=== PATIENT | female | born 1950 | race Caucasian/White ===

== ENCOUNTER 2022-11-12 23:34 | Emergency (ER) | payer OTHER ==
[~2022-11-12] VITALS: Ht 162.6 cm; Wt 63.4 kg
[2022-11-13 01:06] LABS: Basophils # (auto) 0 10 ^3/uL (0-0.2); Basophils % (auto) 0.2 % (0.0-2.0); Eosinophils # (auto) 0.1 10 ^3/uL (0-0.8); Eosinophils % (auto) 0.3 % (0.0-7.0); Hematocrit 45.2 % (36.0-46.0); Hemoglobin 15.1 g/dL (12.2-16.2); Lymphocytes % (auto) 5.6 % (10.0-50.0); Mean Corpuscular Hemoglobin 28.8 pg (28.0-32.0); Mean Corpuscular Hgb Conc. 33.4 g/dL (32.0-36.0); Mean Corpuscular Volume 86.1 fL (80.0-100.0); Monocytes % (auto) 5.6 % (0.0-12.0); Neutrophils # (auto) 16.6 10 ^3/uL (1.6-8.6); Neutrophils % (auto) 88.3 % (37.0-80.0); Nucleated Red Blood Cells % 0.1 %; Red Blood Cells 5.24 10^6/uL (4.0-5.20); Red Cell Distribution Width 14.3 % (11.8-14.3); White Blood Cell 18.8 10^3/uL (4.4-10.8)
[2022-11-13] MEDS ORDERED: MAALOX PLUS or MAALOX 30 ML PO ONE (01:15)
[2022-11-13 01:23] LABS: Albumin 3.8 g/dL (3.4-5.0); BUN/Creatinine Ratio 16.2 (10.0-20.0); Calcium 9.7 mg/dL (8.5-10.1); Potassium 3.8 mmol/L (3.5-5.1)
[2022-11-13 01:26] LABS: Bilirubin, Total 1.1 mg/dL (0.2-1.0)
[2022-11-13 05:01] VITALS: BP 188/83
[2022-11-13] MEDS ORDERED: LIDOCAINE VISCOUS 2% 15ML UD PO ONE (05:30)
== END 2022-11-13 06:09 | disposition left against medical advice (07) ==
LOC: ER 23:34
DX: K85.90 Acute pancreatitis without necrosis or infection, unspecified (principal)
CPT/HCPCS: 36415; 74018; 80053; 83690; 85025; 93005

== ENCOUNTER 2023-09-28 20:33 | Emergency (ER) | payer OTHER ==
[~2023-09-28] VITALS: Ht 162.6 cm; Wt 63.0 kg
[2023-09-28 21:50] LABS: Basophils # (auto) 0.1 10 ^3/uL (0-0.2); Basophils % (auto) 0.4 % (0.0-2.0); Eosinophils # (auto) 0.2 10 ^3/uL (0-0.8); Eosinophils % (auto) 1.6 % (0.0-7.0); Hematocrit 42.9 % (36.0-46.0); Lymphocytes # (auto) 1.9 10 ^3/uL (0.4-5.4); Lymphocytes % (auto) 15.9 % (10.0-50.0); Mean Corpuscular Hemoglobin 27.4 pg (28.0-32.0); Mean Corpuscular Hgb Conc. 32.7 g/dL (32.0-36.0); Mean Corpuscular Volume 83.9 fL (80.0-100.0); Monocytes # (auto) 0.6 10 ^3/uL (0-1.3); Monocytes % (auto) 4.8 % (0.0-12.0); Neutrophils # (auto) 9.1 10 ^3/uL (1.6-8.6); Neutrophils % (auto) 77.3 % (37.0-80.0); Nucleated Red Blood Cells % 0.1 %; Red Blood Cells 5.12 10^6/uL (4.0-5.20); Red Cell Distribution Width 15.1 % (11.8-14.3); White Blood Cell 11.7 10^3/uL (4.4-10.8)
[2023-09-28 22:00] LABS: Chloride 109 mmol/L (98-107); Potassium 4.2 mmol/L (3.5-5.1); Sodium 140 mmol/L (136-145)
[2023-09-28 22:01] LABS: Anion Gap 4 (5-15); Calcium 9.8 mg/dL (8.5-10.1); Carbon Dioxide 27 mmol/L (20-30)
[2023-09-28 22:06] LABS: BUN/Creatinine Ratio 13.1 (10.0-20.0); Blood Urea Nitrogen 14 mg/dL (9-23); Glucose 108 mg/dL (74-106)
[2023-09-28 22:09] LABS: INR 1.02 (0.9-1.15); Prothrombin Time 10.7 sec (9.3-11.8)
[2023-09-28] MEDS ORDERED: HEPARIN DRIP/D5W 100UNITS/ML 250 ML IV SCH (22:15)
[2023-09-28] MEDS: IOHEXOL 350 MG/ML 100ML IJ ONE (22:55)
[2023-09-28 23:08] VITALS: PULSE 62; RESP 13; O2SAT 95
[2023-09-29] MEDS: HEPARIN SODIUM (PORCINE) 5000 UNITS/ML 1ML VIAL IV ONE (00:24)
[2023-09-29] MEDS: HEPARIN DRIP/D5W 100UNITS/ML 250 ML IV SCH (00:26)
[2023-09-29 02:30] VITALS: BP 184/65; PULSE 58; RESP 20; TEMP 98.1; O2SAT 92
== END 2023-09-29 02:47 | disposition short-term general hospital (02) ==
LOC: ER 20:33 → EDBD 20:33 → ER 09-29 02:47
DX: G54.0 Brachial plexus disorders (principal); J44.9 Chronic obstructive pulmonary disease, unspecified; K21.9 Gastro-esophageal reflux disease without esophagitis; E78.5 Hyperlipidemia, unspecified; I10 Essential (primary) hypertension; F17.210 Nicotine dependence, cigarettes, uncomplicated
CPT/HCPCS: 36415; 73201; 80048; 85025; 85610; 85730; 93005; 96365; 96375; 99285; J1644; Q9967

== ENCOUNTER 2024-05-12 18:18 | Emergency (ER) | payer OTHER ==
[~2024-05-12] VITALS: Ht 162.6 cm; Wt 68.0 kg
[2024-05-12 18:50] LABS: Basophils # (auto) 0 10 ^3/uL (0-0.2); Basophils % (auto) 0.4 % (0.0-2.0); Eosinophils # (auto) 0.2 10 ^3/uL (0-0.8); Eosinophils % (auto) 1.8 % (0.0-7.0); Hematocrit 45.2 % (36.0-46.0); Hemoglobin 14.8 g/dL (12.2-16.2); Lymphocytes # (auto) 1.5 10 ^3/uL (0.4-5.4); Lymphocytes % (auto) 17.1 % (10.0-50.0); Mean Corpuscular Hemoglobin 27.8 pg (28.0-32.0); Mean Corpuscular Hgb Conc. 32.6 g/dL (32.0-36.0); Mean Corpuscular Volume 85.2 fL (80.0-100.0); Monocytes # (auto) 0.7 10 ^3/uL (0-1.3); Monocytes % (auto) 7.7 % (0.0-12.0); Neutrophils # (auto) 6.5 10 ^3/uL (1.6-8.6); Nucleated Red Blood Cells % 0.1 %; Platelet Count (auto) 187 10^3/uL (140-450); Red Blood Cells 5.31 10^6/uL (4.0-5.20); Red Cell Distribution Width 14.5 % (11.8-14.3)
[2024-05-12 19:00] VITALS: PULSE 66; RESP 17; O2SAT 92
[2024-05-12 19:08] LABS: Alanine Aminotransferase 24 U/L (7-40); Albumin 4.4 g/dL (3.2-4.8); Alkaline Phosphatase 59 U/L (46-116); Anion Gap 7 (5-15); Aspartate Aminotransferase 26 U/L (13-40); BUN/Creatinine Ratio 15.4 (10.0-20.0); Bilirubin, Total 0.7 mg/dL (0.2-1.0); Blood Urea Nitrogen 25 mg/dL (9-23); Calcium 10.1 mg/dL (8.7-10.4); Carbon Dioxide 24 mmol/L (20-31); Chloride 111 mmol/L (98-107); Glucose 150 mg/dL (74-106); Magnesium 1.9 mg/dL (1.6-2.6); Potassium 3.6 mmol/L (3.5-5.1); Sodium 142 mmol/L (136-145); Total Protein 6.9 g/dL (5.7-8.2)
[2024-05-12 19:15] LABS: INR 1.13 (0.9-1.15); Partial Thromboplastin Time 29.2 SEC (24.5-34.5); Prothrombin Time 11.9 sec (9.3-11.8)
[2024-05-12 22:47] LABS: Urine Bacteria FEW /hpf (None Seen); Urine Blood Negative /uL (Negative); Urine Clarity Clear (Clear); Urine Color Yellow (Yellow); Urine Hyaline Cast MOD /lpf (0 - 2); Urine Mucus FEW (None Seen); Urine Protein, UAD TRACE (Negative); Urine Specific Gravity 1.022 (1.001-1.035); Urine Urobilinogen Normal (Negative); Urine WBC 9 /hpf (0 - 5); Urine pH 5.5 (5.0-9.0)
[2024-05-13 03:58] VITALS: BP 136/39; PULSE 63; RESP 16; O2SAT 94
== END 2024-05-13 04:11 | disposition home or self-care (01) ==
LOC: ER 18:18 → EDBD 18:18 → ER 05-13 04:11
DX: R07.89 Other chest pain (principal); R06.02 Shortness of breath; R00.2 Palpitations; E78.5 Hyperlipidemia, unspecified; F17.210 Nicotine dependence, cigarettes, uncomplicated; I10 Essential (primary) hypertension; J44.9 Chronic obstructive pulmonary disease, unspecified; K21.9 Gastro-esophageal reflux disease without esophagitis; Z79.01 Long term (current) use of anticoagulants; Z86.718 Personal history of other venous thrombosis and embolism; Z88.6 Allergy status to analgesic agent
CPT/HCPCS: 36415; 71045; 80053; 81001; 83735; 83880; 84484; 85025; 85610; 85730; 93005